=== PATIENT | male | born 1995 | race Caucasian/White ===

== ENCOUNTER 2017-06-19 00:25 | Inpatient (IN) | payer OTHER ==
--- NOTE | 2017-06-19 00:29 | EDPHY ---
H & P Source: Patient, Police, EMS - Personal History Tetanus Vaccine Date: 2013 - Medical/Surgical History Hx Asthma: No Hx Chronic Respiratory Disease: No Hx Diabetes: No Hx Cardiac Disease: No Hx Renal Disease: No Hx Cirrhosis: No Hx Alcoholism: No Hx HIV/AIDS: No Hx Splenectomy or Spleen Trauma: No Other PMH: Medical: autism, PTSD.asbergers. Hx. broken nose with deviated septum - Social History Smoking Status: Never smoked HPI/ROS: HPI CHIEF COMPLAINT: M1 hold for gravely disabled. HISTORY OF PRESENT ILLNESS: This patient 21-year-old male, significant past medical history for PTSD and Asperger's, is not on any medications presents emergency room after he called police stating that he was detoxing from a substance police and EMS make contact with him and found he was not detoxing from a substance however they found him in his parent's home his parent's home was rather trashed and they thought he was gravely disabled. They brought him here to the emergency room on M1 hold for being gravely disabled. Past Medical History:PTSD, Aspergers, depression, psychosis. Past Surgical History: denies recent surgery Social History: Denies daily use drugs alcohol tobacco products. Family History: Noncontributory ROS REVIEW OF SYSTEMS: A comprehensive 10 point review of systems is otherwise negative aside from elements mentioned in the history of present illness. Exam Constitutional anxious, triage nursing summary reviewed, vital signs reviewed , awake/alert. Eyes normal conjunctivae and sclera, EOMI, PERRLA. HENT normal inspection, atraumatic, moist mucus membranes, no epistaxis, neck supple/ no meningismus, no raccoon eyes. Respiratory clear to auscultation bilaterally, normal breath sounds, no respiratory distress, no wheezing. Cardiovascular rate normal, regular rhythm, no murmur, no edema, distal pulses normal. Gastrointestinal soft, non-tender, no rebound, no guarding, normal bowel sounds, no distension, no pulsatile mass. Genitourinary no CVA tenderness. Musculoskeletal no midline vertebral tenderness, full range of motion, no calf swelling, no tenderness of extremities, no meningismus, good pulses, neurovascularly intact. Skin pink, warm, & dry, no rash, skin atraumatic. Neurologic awake, alert and oriented x 3, AAOx3, moves all 4 extremities equally, motor intact, sensory intact, CN II-XII intact, normal cerebellar, normal vision, normal speech. Psychiatric flat affect, somewhat anxious Heme/Lymph/Immune no lymphadenopathy. Differential Diagnosis: includes but is not limited to in a particular order acute psychosis, PTSD, anxiety, depression, gravely disabled Medical Decision Making: plan for this patient blood draw for medical clearance. P. o. Zyprexa at the calmed him down. Re-evaluate. He is on M1 hold will need mental health evaluation. Re-evaluation: 0606AM: No acute events overnight. Patient signed over at 7:00 a.m. shift change to Dr. Singleton. Pending eval. (Herbie Ureña) Constitutional: Initial Vital Signs Temperature (C) 36.6 C 06/19/17 00:53 Heart Rate 122 H 06/19/17 00:53 Respiratory Rate 16 06/19/17 00:53 Blood Pressure 164/74 H 06/19/17 00:53 O2 Sat (%) 96 06/19/17 00:53 O2 Delivery Mode Room Air Allergies/Adverse Reactions: amoxicillin Allergy (Verified 06/19/17 09:16) Other-Enter Comments Home Medications: Medication Instructions Recorded Melatonin [Melatonin 3 MG (*)] 3 mg PO HS #0 tab 02/12/16 Herbals/Supplements -Info Only 1 ea PO DAILY 06/19/17 Medical Decision Making ED Course/Re-evaluation: Patient was signed out to me at 7:00 a.m.. He has remained stable. Patient has been evaluated by mental health and has been accepted for admission at [facility]. (Anuj Isaac) - Data Points Laboratory Results: Laboratory Results 06/19/17 00:35 06/19/17 00:35 06/19/17 00:57 Urine Opiates Screen NEGATIVE (NEGATIVE) Urine Barbiturates NEGATIVE (NEGATIVE) Ur Phencyclidine Scrn NEGATIVE (NEGATIVE) Ur Amphetamine Screen NEGATIVE (NEGATIVE) U Benzodiazepines Scrn NEGATIVE (NEGATIVE) Urine Cocaine Screen NEGATIVE (NEGATIVE) U Marijuana (THC) Screen NON-NEGATIVE H (NEGATIVE) Medications Given: Discontinued Medications Olanzapine (Olanzapine) 5 mg PO ONCE ONE Stop: 06/19/17 00:37 Last Admin: 06/19/17 00:42 Dose: 5 mg Olanzapine (Zyprexa Zydis) 5 mg PO EDNOW ONE Stop: 06/19/17 02:31 Last Admin: 06/19/17 02:35 Dose: 5 mg Departure - Departure Disposition: [facility] Clinical Impression: Gravely disabled Condition: Fair Referrals: Patient,NotPresent [Unknown] - As per Instructions
[2017-06-19] MEDS ORDERED: OLANZapine 5 MG TAB PO ONE (00:36)
[2017-06-19 01:00] LABS: % IMMATURE GRANULYOCYTES 0.7 % (0.0-1.1); ABSOLUTE IMMATURE GRANULOCYTES 0.06 10^3/uL (0.00-0.10); ADD DIFF? NO; ADD MORPH? NO; ADD SCAN? NO; ATYPICAL LYMPHOCYTE FLAG 20 (0-99); FRAGMENT RBC FLAG 0 (0-99); HEMATOCRIT 45.4 % (40.0-51.0); HEMOGLOBIN 15.4 g/dL (13.7-17.5); LEFT SHIFT FLG 10 (0-99); LIPEMIA HEMOLYSIS FLAG 90 (0-99); MEAN CELL HEMOGLOBIN 30.9 pg (27.9-34.1); MEAN CELL HEMOGLOBIN CONCENTR. 33.9 g/dL (32.4-36.7); MEAN CELL VOLUME 91.2 fL (81.5-99.8); MEAN PLATELET VOLUME 10.1 fL (8.7-11.7); PLATELET CLUMPS FLAG 0 (0-99); PLATELET COUNT 278 10^3/uL (150-400); RED BLOOD CELL COUNT 4.98 10^6/uL (4.40-6.38); RED CELL DISTRIBUTION WIDTH 12.9 % (11.5-15.2)
[2017-06-19 01:02] LABS: ANION GAP 16 mEq/L (8-16); CALCIUM 9.2 mg/dL (8.5-10.4); CARBON DIOXIDE 19 mEq/l (22-31); CHLORIDE 102 mEq/L (97-110); CREATININE 0.8 mg/dL (0.7-1.3); ETHANOL SERUM < 10 mg/dL (0-10); GLOMERULAR FILTRATION RATE > 60; GLUCOSE 128 mg/dL (70-100); POTASSIUM 3.6 mEq/L (3.5-5.2); SALICYLATE < 1.0 mg/dL (2.0-20.0); SODIUM 137 mEq/L (134-144)
[2017-06-19 01:04] LABS: LITHIUM < 0.2 mEq/L (0.6-1.2)
[2017-06-19] MEDS ORDERED: OLANZapine DISINTEGR 5 MG TAB PO ONE (02:30)
[2017-06-19] MEDS ORDERED: ACETAMINOPHEN 325 MG TAB PO PRN (17:06)
[2017-06-19] MEDS ORDERED: OLANZapine 5 MG TAB PO PRN (17:06)
[2017-06-19] MEDS ORDERED: LORazepam 0.5 MG TAB PO PRN (17:07)
[2017-06-19] MEDS ORDERED: MAG HYDROX/AL HYDROX/SIMETH 30 ML UDCUP PO PRN (17:07)
[2017-06-19] MEDS ORDERED: MAGNESIUM HYDROXIDE 30 ML UDCUP PO PRN (17:08)
[2017-06-19] MEDS ORDERED: NICOTINE POLACRILEX 2 MG GUM B PRN (17:09)
[2017-06-19] MEDS: OLANZapine 10 MG TAB PO SCH (21:00)
--- NOTE | 2017-06-20 15:34 | BCON ---
[f rep st] BEHAVIORAL HEALTH CONSULTATION INTERNAL MEDICINE CONSULTATION HISTORY OF PRESENT ILLNESS: This patient was brought to the emergency department gravely disabled per the police. He had called the police, saying that he was detoxing from a substance. He was found to be in his parent's home , which was "trashed," and they decided he was gravely disabled. He reports that he was having chest pain, and he says he did self chest compressions, and returned to breathing normally. He was evaluated by the mental health team and admitted for further psychiatric care. He is currently without acute medical complaints. PAST MEDICAL HISTORY: 1. Mental health conditions with diagnoses in the medical record including PTSD , Asperger's, depression, and psychosis 2. Fracture of the nose with deviated septum. MEDICATIONS: He has been prescribed lithium, olanzapine, lorazepam, and he is taking melatonin. However, he reports that he had decided not to take pharmacologic medications and explains that lithium causes stomach pain. PAST SURGICAL HISTORY: He has not had any surgeries. SOCIAL HISTORY: He lives with his father. His parents are . He is a nonsmoker and is not using alcohol, but he has a history of polysubstance abuse. He denied use of marijuana but his urine toxicology screen was positive for marijuana. FAMILY HISTORY: Noncontributory. REVIEW OF SYSTEMS: Other than unusual description of having done self chest compressions, a 10-point review of systems was conducted and was negative. PHYSICAL EXAM: VITAL SIGNS: Blood pressure is 136/75, heart rate is 87, respiratory rate is 16, oxygen saturation is 97% on room air. Temperature is 36.9 degrees centigrade. His weight is 54.4 kg for a body mass index of 16.7. GENERAL: This is a thin man, appears his chronologic age, long hair, unkempt, cooperative, and in no acute distress. HEENT: Extraocular movements are intact. Pupils are equal, round, and reactive to light. Mucous membranes are moist. Dentition is in good condition. NECK: Supple with no thyromegaly. HEART: There is a regular rate and rhythm with no murmurs, rubs, or gallops. He has marked respiratory variation in his heart rate. LUNGS: Clear to auscultation bilaterally. ABDOMEN: Soft, nontender, nondistended with normoactive bowel sounds. EXTREMITIES. There is no cyanosis, clubbing, or edema. NEUROLOGIC: Orientation was not checked. He is alert and cooperative. Cranial nerves 2-12 are grossly intact. There is no focal weakness. Sensation is intact to light touch, and gait is within normal limits. LABORATORY STUDIES: Drawn in the emergency department: CBC was entirely within normal limits. Serum chemistry revealed a slightly low carbon dioxide at 19, and an elevated glucose at 128; however, this was likely not fasting. Otherwise, renal function and electrolytes were within normal limits. Toxicology screen in the serum was negative for salicylates, acetaminophen or ethyl alcohol, and lithium level was not detectable. Toxicology screen in the urine was non-negative for THC. ASSESSMENT/RECOMMENDATIONS: 1. Mental health issues, pending further evaluation and management per Psychiatry and the mental health team. 2. Overall normal exam. He is underweight, but his weight is stable. He has had thyroid testing while he was on lithium and has had a normal TSH. There are no signs or symptoms consistent with "self-chest compressions." 3. Marijuana use disorder. He might benefit from specific substance abuse counseling. 4. Noncompliance with psychiatric medications. I see no medical contraindications to the patient's continued stay in the inpatient behavioral health unit, or to any psychiatric medications or procedures. Thank you very much for including me in the care of this patient, and please do not hesitate to contact me or the hospitalist service should there be need for further medical evaluation. /[id number]/MODL MTDD
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
[2017-06-20] MEDS: MELATONIN 3 MG TAB PO PRN (20:39)
[2017-06-20] MEDS: OLANZapine 10 MG TAB PO SCH (20:41)
--- NOTE | 2017-06-21 19:43 | SOAPPROG ---
SODEEPTI Progress Note Assessment/Plan: Assessment: Plan: 06/21/17 19:45 Pt remains manic, psychotic. Lacks capacity to reasonably and rationally participate in his care. Will place on STC, seek [facility]. Subjective: Pt seen, discussed with staff. 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 He states he knows people who have taken them and has been warned "they are all poisonous to your body." I specifically discussed possible use of Lamictal, all atypicals, Depakote, and [place]. I discussed with him that I cannot release him from the hospital in his manic state without a definitive medication intervention. He states he will take only melatonin. I further discussed with him the STC process and the path to becoming a voluntary patient including demonstrating resolution of his nilson. I indicated to him that this will be most efficiently accomplished by taking medication. He states that he is voluntary (regardless of my repeated instructions to him that he is not and my demonstration to him of his M-1 paperwork) and he states he will never take psychotropic medications. Objective: Vital Signs Temp Pulse Resp BP Pulse Ox 36.7 C 70 12 102/69 96 06/21/17 06:00 06/21/17 06:00 06/21/17 06:00 06/21/17 06:00 06/21/17 06:00 - Time Spent With Patient Time Spent With Patient: 25" - Pending Discharge Pending Discharge Within 24 Hours: No Pending Discharge Within 48 Hours: No ICD10 Worksheet Patient Problems: Problems Problem Status Onset Gravely disabled Acute Acute psychosis Acute Mood disorder Acute
[2017-06-21] MEDS: OLANZapine 10 MG TAB PO SCH (21:24)
[2017-06-21] MEDS: MELATONIN 3 MG TAB PO PRN (22:06)
--- NOTE | 2017-06-22 16:17 | SOAPPROG ---
SOAP Progress Note Assessment/Plan: Assessment: 21yo cm with hx BMD with psychosis and THC use d/o, with recent med n/c admitted in manic/psychotic state also with +THC 06/22/17 16:17 reports frustration w/treatment team, stating he was admitted for a physiological medical emergency, in anaphylactic shock, and has no idea how he is now certified on mental health unit which he believes is fraudulent. 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 states he has a "Reikish penchant for self-experimentation" , and has been working with an evolutionary psychologist Dr. Adam Martin, in the community to "nullify my bipolar diagnosis". 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 States he is learning about many different meds and herbs with online chat groups, and mentions the dark-net talked of numerous herbal concoctions he has tried and interactions he has experienced, as well as problems with medications, and different herbs he tried recently to help detox from most recent mood stabilizer regimen. initially expressed frustrations with tx team and meds Rxd, but then eventually agreed to try something new such as Latuda or Saphris. also requested incr melatonin prn. denied any physical complaints MSE: long hair, w/ vora, casually dressed, cooperative, engaged, good eye contact, talkative and needing frequent redirection, mood is "frustrated" about being here but otherwise fine, affect is full, TP/TC notable for some paranoia about treatment team and being experimented on with medications, and grandiosity , denied si/hi or any ah/vh. cognition intact. i/j both impaired PLAN: has ativan prn and zyprexa 10 but doesn't want zyprexa again agrees to try latuda or saphris when different med options discussed. states he "looked into the herbal origins of saphris" and would like reading material on both first incr melatonin to 3-6mg prn at pt request Objective: Vital Signs Temp Pulse Resp BP Pulse Ox 36.4 C 68 18 125/82 H 97 06/22/17 05:49 06/22/17 05:49 06/22/17 05:49 06/22/17 05:49 06/22/17 05:49 - Time Spent With Patient Time Spent With Patient: 35min - Pending Discharge Pending Discharge Within 24 Hours: No Pending Discharge Within 48 Hours: No ICD10 Worksheet Patient Problems: Problems Problem Status Onset Gravely disabled Acute Acute psychosis Acute Mood disorder Acute
[2017-06-22] MEDS: OLANZapine 10 MG TAB PO SCH (20:37)
[2017-06-22] MEDS: MELATONIN 3 MG TAB PO PRN (21:41)
--- NOTE | 2017-06-23 16:31 | SOAPPROG ---
BRIAN Progress Note Assessment/Plan: Assessment: Plan: 06/21/17 19:45 Pt remains manic, psychotic. Lacks capacity to reasonably and rationally participate in his care. Will place on ST, seek COM. 06/23/17 16:32 Pt's clinical condition is worsening as he gets farther from medication compliance. Will petition for COM. Subjective: Pt seen, discussed with staff. Initially cooperative, but quickly escalates, yelling angrily that I am selling his medical information to "hundreds of people " and that I am going to go to detention. He states he will hack our security system and prove his allegations. 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 He is unable to discuss potential benefits of any medication treatment insisting that "they all cause damage to my internal organs and microseizures." Objective: Vital Signs Temp Pulse Resp BP Pulse Ox 36.4 C 76 16 106/70 98 06/23/17 06:00 06/23/17 06:00 06/23/17 06:00 06/23/17 06:00 06/23/17 06:00 MSE: Angry, hostile, uncooperative. Speech is loud, threatening, rapid, pressured. Affect is angry, elevated. Mood is "terrible." TP tangential. TC reveals paranoid and grandiose delusions, and IOR's. - Time Spent With Patient Time Spent With Patient: 25" - Pending Discharge Pending Discharge Within 24 Hours: No Pending Discharge Within 48 Hours: No ICD10 Worksheet Patient Problems: Problems Problem Status Onset Gravely disabled Acute Acute psychosis Acute Mood disorder Acute
[2017-06-23] MEDS: MELATONIN 3 MG TAB PO PRN (22:16)
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
[2017-06-24] MEDS: LURASIDONE HCL 40 MG TAB PO SCH (15:38)
[2017-06-24] MEDS: MELATONIN 3 MG TAB PO PRN (20:46)
--- NOTE | 2017-06-25 14:21 | SOAPPROG ---
SOAP Progress Note Assessment/Plan: Assessment:Patient with bipolar disorder with nilson and psychosis reporting his preference for "natural medication" - weed. He did take the Latuda, and he is fine with continuing it at least until he can get set-up with TMS. No evidence of seizures. Plan: Will start Latuda for Bipolar Disorder. Went over the risks and benefits. Patient understands and is willing to try. If there is any indication of seizures, will recommend that the patient have an EEG. 06/24/17 15:16 06/24/17 15:35 06/25/17 11:24 06/25/17 14:13 Subjective: He reports he is feeling fine on the Latuda. He feels better than he did on other psychiatric medications. "I can't say I'm used to the Latuda." He reports being a little woozy and sedated. "Beyond that I feel normal." He also believes doubling the melatonin helped. He still is looking at getting TMS, so he doesn' t know how long he will stay on the Latuda. He plans to [facility]up with [facility].Sleep- "Pretty good." He reports 8 to 10 hours. 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 He wants to spend more time outdoors. He has talked to his father about picking him up at discharge. He wanders about a pass. Objective: Vital Signs Temp Pulse Resp BP Pulse Ox 36.4 C 78 18 105/70 98 06/25/17 05:57 06/25/17 05:57 06/25/17 05:57 06/25/17 05:57 06/25/17 05:57 male, relaxed sitting in an office chair. Good eye contact. Mood- "Pretty even." Thought Process- linear and goal directed. Thought Content- No SI /HI. No AH/VH. - Time Spent With Patient Time Spent With Patient: 15 - Pending Discharge Pending Discharge Within 24 Hours: No Pending Discharge Within 48 Hours: No ICD10 Worksheet Patient Problems: Problems Problem Status Onset Gravely disabled Acute Acute psychosis Acute Mood disorder Acute
[2017-06-25] MEDS: LURASIDONE HCL 40 MG TAB PO SCH (17:43)
[2017-06-25] MEDS: MELATONIN 3 MG TAB PO PRN (20:04)
--- NOTE | 2017-06-26 16:15 | SOAPPROG ---
SOAP Progress Note Assessment/Plan: Assessment:Patient with bipolar disorder with nilson and psychosis reporting his preference for "natural medication" - weed. He has been taking the Latuda, and he is fine with continuing it at least until he can get set-up with TMS or can be rediagnosed by Dr. Martin. No evidence of seizures. Plan: Will start Latuda for Bipolar Disorder. Went over the risks and benefits. Patient understands and is willing to try. If there is any indication of seizures, will recommend that the patient have an EEG. 06/24/17 15:16 06/24/17 15:35 06/25/17 11:24 06/25/17 14:13 06/26/17 16:06 Subjective: He reports he was asking about AG. He wants to discharge as soon as possible. He is an optimist. 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 He needs to deal with some financial thing with his father, and he needs to figure out where each will be living. He has been sleeping a lot because he is catching up on the sleep he missed before coming into the hospital. He reports insomnia has been a lifelong issue. He wants to follow-up with [facility], he TMS clinic at [facility], and Dr. Martin (to be rediagnosed). 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 "I feel as normal as possible." Objective: Vital Signs Temp Pulse Resp BP Pulse Ox 36.6 C 79 18 129/74 H 98 06/26/17 06:00 06/26/17 06:00 06/26/17 06:00 06/26/17 06:00 06/26/17 06:00 male with shoulder length hair, clam and cooperative. Good eye contact. Speech- Talkative. Mood- " Fine." Affect-Euthymic, full. Thought Process- linear and goal directed. Thought Content- No SI/HI. No AH/VH. Insight - Poor. Judgment - Fair. ICD10 Worksheet Patient Problems: Problems Problem Status Onset Gravely disabled Acute Acute psychosis Acute Mood disorder Acute
[2017-06-26] MEDS: LURASIDONE HCL 40 MG TAB PO SCH (16:35)
[2017-06-26] MEDS: MELATONIN 3 MG TAB PO PRN (22:24)
--- NOTE | 2017-06-27 15:23 | SOAPPROG ---
SODEEPTI Progress Note Assessment/Plan: Assessment: Plan: 06/21/17 19:45 Pt remains manic, psychotic. Lacks capacity to reasonably and rationally participate in his care. Will place on ST, seek COM. 06/23/17 16:32 Pt's clinical condition is worsening as he gets farther from medication compliance. Will petition for COM. 06/27/17 15:23 Significant improvement. CCM. Subjective: Pt seen, discussed with staff, chart reviewed. He is pleasant and interactive, approaches me immediately when I enter the unit. He states he is pleased with the Latuda. Notes no side effects. Appears calmer. Delusions persist, but less prominent. Describes plan to f/u with [facility] "intensive outpatient program" though it does not appear they have one. Continues to struggle organizing his thoughts well. Objective: Vital Signs Temp Pulse Resp BP Pulse Ox 36.3 C 88 18 108/68 98 06/27/17 06:00 06/27/17 06:00 06/27/17 06:00 06/27/17 06:00 06/27/17 06:00 MSE: Calm, coop. Much less irritable/hostile. Affect is euthymic, stable. Mood is "good." TP tangential at times, improved. TC reveals continued grandiose and paranoid delusional systems, though more easily redirected out of these. - Time Spent With Patient Time Spent With Patient: 25" ICD10 Worksheet Patient Problems: Problems Problem Status Onset Gravely disabled Acute Acute psychosis Acute Mood disorder Acute
[2017-06-27] MEDS: LURASIDONE HCL 40 MG TAB PO SCH (16:32)
[2017-06-27] MEDS: MELATONIN 3 MG TAB PO PRN (22:15)
[2017-06-28 06:21] VITALS: O2SAT 96
[2017-06-28] MEDS: LURASIDONE HCL 40 MG TAB PO SCH (15:25)
--- NOTE | 2017-06-28 17:28 | SOAPPROG ---
SOAP Progress Note Assessment/Plan: Assessment: Plan: 06/21/17 19:45 Pt remains manic, psychotic. Lacks capacity to reasonably and rationally participate in his care. Will place on ST, seek COM. 06/23/17 16:32 Pt's clinical condition is worsening as he gets farther from medication compliance. Will petition for COM. 06/27/17 15:23 Significant improvement. CCM. 06/28/17 17:32 Continues improvement. CCM. Likely d/c tomorrow. Subjective: Pt seen, discussed with staff. Anxious and animated re: d/c. Able to calm himself. Agreeable to outpt f/u with [facility]: daily checkins for meds. Sleep is stable and he is compliant with Latuda without complaint. Notes no side effects from medication. Objective: Vital Signs Temp Pulse Resp BP Pulse Ox 36.4 C 80 12 128/71 H 96 06/28/17 06:00 06/28/17 06:00 06/28/17 06:00 06/28/17 06:00 06/28/17 06:00 MSE: Moderately agitated, coop. Affect is anxious, stable. Mood is "good." TP generally linear, though derails in tangents on delusional themes frequently. 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 States he has to leave the hospital immediately, "Because some people have jobs, hello." Denies SI/HI/ . - Time Spent With Patient Time Spent With Patient: 25" ICD10 Worksheet Patient Problems: Problems Problem Status Onset Gravely disabled Acute Acute psychosis Acute Mood disorder Acute
[2017-06-28] MEDS: MELATONIN 3 MG TAB PO PRN (21:41)
[2017-06-29 06:22] VITALS: BP 121/73; PULSE 83; RESP 14; TEMP 97.7
--- NOTE | 2017-06-30 18:25 | BDS ---
[f rep st] BEHAVIORAL HEALTH DISCHARGE SUMMARY REASON FOR ADMISSION: Patient is a 21-year-old male with a previous history of recurrent psychosis. He had been hospitalized in 2016 with us for an extended period of time due to paranoid and grandiose psychosis. At that time, it appeared to be linked to his heavy cannabis use. He also had some manic symptoms and was stabilized on a combination of lithium and Zyprexa. He [facility] the [facility] and participated actively with [facility] and then returned to his father's home. Ove r the next year, he was generally compliant with his medicines and stable. Over the last month prio r to admission, however, he apparently had been tapering off his medications and had begun smoking p ot again. He presented to the emergency department after calling 9-1-1 requesting help because he f elt like he was detoxing. He was disorganized, pressured, and delusional, and they placed him on an M1 hold. A full description of the events preceding admission can be found in my admission history dated 06/20/2017. ADMITTING DIAGNOSES: 1. Bipolar 1 disorder, most recent episode manic with psychosis, chronic illness with exacerbation. 2. Medication noncompliance. 3. Social margination. 4. Cannabis use disorder, severity unknown. ADMISSION PHYSICAL EXAMINATION: Performed by Dr. Moise Brito revealed no acute findings. ADMISSION LABORATORY: CBC is normal. Serum chemistries reveal a nonfasting glucose of 128, otherwi se, normal. Urine drug screen is positive for marijuana. Stevinson was less than detectable. HOSPITAL COURSE: Patient was admitted to the [facility] inpatient unit on an M1 hold. He was agitated, pressured, and tangential. 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 He stated he had to leave the hospital immediately so he could return to these duties. He was adamant about not taking any further medication and states that the lithium had poisoned him and caused live r failure and "micro seizures." He spent the first 5 days of hospitalization taking no medications until we were ultimately able to convince him to try Latuda. He then started Latuda at 20 and then 40 mg and tolerated well with no side effects. Patient seemed to stabilize fairly rapidly with the Latuda. His sleep was more than 7 hours per nig ht. He was no longer agitated, though he did remain delusional. 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 They seemed on previous exam inations and hospitalizations to be attended to his unstable mood or the substance intoxication, tho ugh now it appears that they may linger on separately. Patient's hospitalization was uncomplicated. He stabilized well on the Latuda. He was seen by his outpatient therapist through [facility], Thee Mcguire. Thee concurred, per nursing report, the patient was stable enough to transfer to outpatient treatment. Patient was discharged with a pr escription for 30 days of medication. CONDITION AT DISCHARGE: Stable. Patient's affect was euthymic, stable, and appropriate. He has co ntinued to voice some of his delusional thoughts, but I do not believe this will substantially ambriz e over time. He was compliant with medications and was voicing no thoughts of suicide, homicide, or violence. DISCHARGE MEDICATIONS: Latuda 40 mg daily. DISPOSITION: Patient left the hospital to return to his father's home with his father. FOLLOWUP: With [facility] as scheduled. LEGAL COURSE: Patient was placed on a short-term certification at the expiration of his M1 hold. T he short-term certification was discontinued at time of discharge. It is of note that he did stipul ate to involuntary medications also during his stay. /[id number]/MODL
== END 2017-06-29 12:57 | disposition home or self-care (01) | DRG 885 ==
LOC: EDUNIT# → BBEH 15:00
PROVIDERS: ADMIT Psychiatry & Neurology Behavioral Neurology & Neuropsychiatry; ATTEND Psychiatry & Neurology Behavioral Neurology & Neuropsychiatry
DX: F31.2 Bipolar disorder, current episode manic severe with psychotic features (principal); Z91.14 Patient's other noncompliance with medication regimen; T43.596A Underdosing of other antipsychotics and neuroleptics, initial encounter; F12.90 Cannabis use, unspecified, uncomplicated; F43.10 Post-traumatic stress disorder, unspecified; F84.5 Asperger's syndrome
CPT/HCPCS: 80305; G0480

== ENCOUNTER 2019-04-05 20:26 | Emergency (ER) | payer OTHER ==
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
[2019-04-05] MEDS ORDERED: CEPHALEXIN 500 MG CAP PO ONE (21:12)
[2019-04-19 14:07] VITALS: BP 135/67
== END 2019-04-05 21:53 | disposition home or self-care (01) ==
LOC: EDUNIT#
PROC: 0HQFXZZ Repair Right Hand Skin, External Approach (ICD-10-PCS; principal; 2019-04-05)
DX: S61.202A Unspecified open wound of right middle finger without damage to nail, initial encounter (principal); W23.0XXA Caught, crushed, jammed, or pinched between moving objects, initial encounter; Y93.89 Activity, other specified
CPT/HCPCS: L3925